=== PATIENT | male | born 1995 | race Caucasian/White ===

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

== ENCOUNTER 2017-08-28 21:44 | Emergency (ER) | payer OTHER ==
--- NOTE | 2017-08-28 22:10 | EDPHY ---
H & P Stated Complaint: CP X 5.5 HRS Source: Patient, Family (Mother) Exam Limitations: No limitations - Personal History Current Tetanus Diphtheria and Acellular Pertussis (TDAP): Yes - Medical/Surgical History Hx Asthma: No Hx Chronic Respiratory Disease: No Hx Diabetes: No Hx Cardiac Disease: No Hx Renal Disease: No Hx Cirrhosis: No Hx Alcoholism: No Hx HIV/AIDS: No Hx Splenectomy or Spleen Trauma: No Other PMH: wisdom teeth - Social History Smoking Status: Current some day smoker Time Seen by Provider: 08/28/17 21:53 HPI/ROS: HPI: This is a 22-year-old male who presents with Chief Complaint: Palpitations and left-sided chest discomfort Location: heart Quality: Palpitations and left-sided chest discomfort Duration: 1 month Signs and Symptoms: no shortness of breath at rest, no shortness of breath on exertion, no cough, no chest pain, no palpitations, no lower extremity edema, no wheezing, no orthopnea, no paroxysmal nocturnal dyspnea, no fever, no injury/ trauma, no hemoptysis, no carpal pedal spasms Timing: Lasting several minutes, occurring several times per day Severity: Moderate Context: Patient is a local [employer] student presenting accompanied by his mother for complaints of 1 month history of racing heart occurring at rest and at all times during the day and night. Patient reports these episodes can occur at rest or on exertion. Episodes are occurring 1-2 times per day. Patient reports that he was seen in the emergency room and sent to a [facility] primary care provider for follow-up. He reports that in the emergency room he had laboratory studies, chest x-ray, EKG that were all unremarkable. Patient reports that he did not have a blood clot. He did not have a CTA chest performed. Mother has flown in from [place] to help take her son back home for the summer. They will be flying home on Tuesday. Patient admits to drinking approximately 2-4 cups of coffee daily. He also smokes marijuana out of a bong 1-3 times per day. He denies any upper respiratory symptoms or recent viral syndrome. Pain is not positional in nature. No recent heavy lifting or injury. He reports that the chest discomfort occurs after his heart races for few minutes and he becomes more cardiac aware. Denies any radiation/nausea/vomiting/jaw pain/diaphoresis/ sweaty palm. Modifying Factors: None Comment: ROS: see HPI Constitutional: No fever, no chills, no weight loss Eyes: No blurred vision Respiratory: No shortness of breath, no cough Cardiovascular: + chest pain, + palpitations, no lower extremity edema Gastrointestinal: No nausea, no vomiting, no diarrhea Genitourinary: No dysuria Extremities: No myalgias Neurologic: No weakness, no numbness Skin: No rashes Hematologic: No bruising, no bleeding MEDICAL/SURGICAL/SOCIAL HISTORY: Medical history: Generally healthy. Does not take any regular medications. Surgical history: [place] teeth removal Social history: Student at [employer] CONSTITUTIONAL: Extremely well-appearing young adult white male, mother at bedside, awake and alert, no obvious distress HEENT: Atraumatic and normocephalic, PERRL, EOMI. Nares patent; no rhinorrhea; no nasal mucosal edema. Tympanic membranes clear. Oropharynx clear, no exudate and moist pink mucosa. Airway patent. No lymphadenopathy. No meningismus. Cardiovascular: Normal S1/S2, regular rate, regular rhythm, without murmur rub or gallop. PULMONARY/CHEST: Symmetrical and nontender. Clear to auscultation bilaterally. Good air movement. No accessory muscle usage. ABDOMEN: Soft, nondistended, nontender, no rebound, no guarding, no peritoneal signs, no masses or organomegaly. No CVAT. EXTREMITIES: 2/2 pulses, strength 5/5, no deformities, no clubbing, no cyanosis or edema. Negative Homans sign. NEUROLOGICAL: no focal neuro deficits. GCS 15. SKIN: Warm and dry, no erythema. no rash. Good capillary refill. (Andrew,Terra) Constitutional: Initial Vital Signs Temperature (C) 36.7 C 08/28/17 21:50 Heart Rate 82 08/28/17 21:50 Respiratory Rate 16 08/28/17 21:50 Blood Pressure 139/55 H 08/28/17 21:50 O2 Sat (%) 96 08/28/17 21:50 O2 Delivery Mode Room Air Allergies/Adverse Reactions: No Known Allergies Allergy (Verified 08/28/17 21:50) Home Medications: Medication Instructions Recorded Lialda 08/08/16 Medical Decision Making - Diagnostics EKG Interpretation: 12 lead EKG: Indication: Palpitation Rhythm: Normal sinus rhythm, rate 66 beats per minute [place]: Normal Intervals: Normal QRS: Normal ST segments: Normal INTERPRETATION: No acute ischemic changes The 12 lead EKG was interpreted by myself and with attending. (Isabell Morales) ED Course/Re-evaluation: Placed on health inspector upon arrival. Vital signs show heart rate between 50- 80 beats per minute. EKG, labs, CTA chest ordered EKG no signs of arrhythmia/QT lower prolongation/acute ischemic changes 2300: Reviewed labs. No signs of leukocytosis/anemia/LAUREN/elevated LFTs/ electrolyte imbalance/CHF/elevated ESR or CRP. Suspect stimulant use and marijuana regular uses precipitating symptoms. Discussed possibility of arrhythmias including AV node reentrant tachycardia, paroxysmal sinus tachycardia, PVCs. Discussed benefit from a Holter monitor and plus or minus echocardiogram upon returning home to [place]. This patient was seen under the supervision of my secondary supervising physician. I evaluated care for this patient independently. Discussed this patient with Dr. Tillman who did see the patient. 2300: End of Shift. Signed over to Dr. Tillman pending CTA chest. Suspect will be discharged home with Cardiology follow-up for Holter monitor. (Isabell Morales) CT angiogram of the chest negative for any acute disease process called to me by Dr. Bogdan Maki. No PE. (Benjamin Tillman) Differential Diagnosis: Chest pain including but not limited to myocardial ischemia, pulmonary embolus, chest wall pain, pheochromocytoma, pleuritis, pericarditis, pleural inflammation and pulmonary infectious causes. (Isabell Morales) - Data Points Laboratory Results: Laboratory Results 08/28/17 22:15 08/28/17 22:15 08/28/17 08/28/17 22:15 22:15 WBC 9.21 10^3/uL 10^3/uL (3.80-9.50) RBC 5.16 10^6/uL 10^6/uL (4.40-6.38) Hgb 15.1 g/dL g/dL (13.7-17.5) Hct 43.9 % % (40.0-51.0) MCV 85.1 fL fL (81.5-99.8) MCH 29.3 pg pg (27.9-34.1) MCHC 34.4 g/dL g/dL (32.4-36.7) RDW 13.1 % % (11.5-15.2) Plt Count 225 10^3/uL 10^3/uL (150-400) MPV 10.2 fL fL (8.7-11.7) Neut % (Auto) 53.7 % % (39.3-74.2) Lymph % (Auto) 34.1 % % (15.0-45.0) [place] % (Auto) 6.8 % % (4.5-13.0) Eos % (Auto) 3.7 % % (0.6-7.6) Baso % (Auto) 1.2 % % (0.3-1.7) Nucleat RBC Rel Count 0.0 % % (0.0-0.2) Absolute Neuts (auto) 4.94 10^3/uL 10^3/uL (1.70-6.50) Absolute Lymphs (auto) 3.14 10^3/uL H 10^3/uL (1.00-3.00) Absolute Monos (auto) 0.63 10^3/uL 10^3/uL (0.30-0.80) Absolute Eos (auto) 0.34 10^3/uL 10^3/uL (0.03-0.40) Absolute Basos (auto) 0.11 10^3/uL H 10^3/uL (0.02-0.10) Absolute Nucleated RBC 0.00 10^3/uL 10^3/uL (0-0.01) Immature Gran % 0.5 % % (0.0-1.1) Immature Gran # 0.05 10^3/uL 10^3/uL (0.00-0.10) ESR < 1 MM/HR MM/HR (0-15) Sodium 142 mEq/L mEq/L (135-145) Potassium 4.0 mEq/L mEq/L (3.5-5.2) Chloride 102 mEq/L mEq/L (97-110) Carbon Dioxide 25 mEq/l mEq/l (22-31) Anion Gap 15 mEq/L mEq/L (8-16) BUN 21 mg/dL mg/dL (7-23) Creatinine 1.1 mg/dL mg/dL (0.7-1.3) Estimated GFR > 60 Glucose 94 mg/dL mg/dL (70-100) Calcium 9.5 mg/dL mg/dL (8.5-10.4) Magnesium 2.1 mg/dL mg/dL (1.6-2.3) Troponin I < 0.012 ng/mL ng/mL (0.000-0.034) C-Reactive Protein 7.0 mg/L mg/L (<10.0) NT-Pro-B Natriuret Pep 44 pg/mL pg/mL (0-125) TSH 4.230 uIU/mL uIU/mL (0.465-4.680) Departure - Departure Disposition: Home, Routine, Self-Care Clinical Impression: Heart palpitations Condition: Good Instructions: Heart Palpitations (ED), Holter Monitoring (ED) Additional Instructions: Please refrain from using any stimulants including caffeine. Stop smoking marijuana. If symptoms persist after cessation of stimulants and marijuana, follow-up with Cardiology to discuss candidacy for Holter monitor. Referrals: PCP Not In,Dictionary [Medical Doctor] - As per Instructions
--- NOTE | 2017-08-28 22:17 | CPEKG ---
Heart Rate: 66 RR Interval: 909 P-R Interval: 132 QRSD Interval: 92 QT Interval: 360 QTC Interval: 378 P Gamaliel: 51 QRS Gamaliel: 74 T Wave Gamaliel: 64 EKG Severity - NORMAL ECG - EKG Impression: SINUS RHYTHM Electronically Signed By: Benjamin Tillman 29-Aug-2017 06:14:28
[2017-08-28 22:29] LABS: PLATELET COUNT 225 10^3/uL (150-400)
[2017-08-28] MEDS ORDERED: IOPAMIDOL (ISOVUE 370) 100 ML BTL IV ONE (22:59)
[2017-08-29 00:06] VITALS: BP 112/60
== END 2017-08-29 00:43 | disposition home or self-care (01) ==
DX: R00.2 Palpitations (principal); F17.200 Nicotine dependence, unspecified, uncomplicated
CPT/HCPCS: Q9967